=== PATIENT | male | born 1965 ===

== ENCOUNTER → 2023-10-27 14:10 | Outpatient (REF) | payer OTHER, SELFPAY | LOC: MRI 3T 14:10 | PROVIDERS: ATTENDING PHYSICIAN Internal Medicine | DX: R42 Dizziness and giddiness (principal) | CPT/HCPCS: 70553; A9575 ==

== ENCOUNTER 2024-06-30 05:44 | Emergency (ER) | payer OTHER, SELFPAY ==
[2024-06-30] VITALS (7 sets, daily range): BP systolic 108–184; BP diastolic 66–98; BMI 27.1
[2024-06-30] MEDS: ZOFRAN 4 MG IV (06:28)
[2024-06-30] MEDS: NSS 500 IV (06:28)
--- NOTE | 2024-06-30 06:50 | ED.GENMED ---
History of Present Illness
General
Chief Complaint: Dizziness
Source: patient and spouse
Time Seen by Provider: 06/30/24 06:02
History of Present Illness
History of Present Illness:
59-year-old male with history hyperlipidemia presents with severe room spinning dizziness. Patient states he has had this in the past and has followed up with ENT and the vestibular specialist. He had an outpatient MRI. He had done well for a few
months but then intermittently started having the symptoms again. Patient states that yesterday he could sense that he was getting a little dizzy and that it was good to be a tough night. Around 10 PM he got much worse. Started having severe room
spinning dizziness even at rest with vomiting. The symptoms are clearly much worse when he tries to sit up. Patient denies headache. Has had off-and-on tinnitus. No fevers. No neck pain. No vision changes. No motor weakness. No numbness or
tingling.
Past History
Past History
ED Past Medical History: Hypercholesterolemia and Other (Vertigo)
Phy Exam
Physical Exam
Physical Exam:
CONSTITUTIONAL Patient alert and oriented to person, place and time. Well-appearing. Vital signs reviewed.
HEAD atraumatic, normocephalic.
EYES eyelids normal to inspection, Extraocular muscles intact, Conjunctiva normal, Sclera normal.
NECK normal range of motion, Trachea midline, no jugular venous distention.
RESPIRATORY CHEST No respiratory distress noted, Chest expansion equal
BACK normal inspection, no obvious deformities
UPPER EXTREMITY range of motion normal, Motor strength normal, no cyanosis, no edema.
LOWER EXTREMITY range of motion normal, Motor strength normal, no cyanosis, no edema.
NEURO Speech normal, No focal motor deficits, [place] coma scale 15, Memory normal, Cranial Nerves intact to screening exam. Right horizontal nystagmus noted with questionable rotatory component.
SKIN skin warm, dry, and normal in color.
Course
Orders/Labs/Results
Orders:
Orders
06/30/24 06:23
Ondansetron Injectable [Zofran] 4 mg .ROUTE .STK-MED ONE
06/30/24 06:25
0.9% Sodium Chloride 500 ml [Nss] 500 ml IV BOLUS
06/30/24 06:27
Ondansetron Injectable [Zofran] 4 mg IV NOW STA
06/30/24 06:30
Meclizine [Antivert] 25 mg PO NOW STA
06/30/24 06:38
Basic Metabolic Panel Urgent
Complete Blood Count/With Diff Urgent
06/30/24 08:27
Diphenhydramine [Benadryl] 25 mg IV NOW STA
diazePAM [Valium Injection] 5 mg IV NOW STA
Abnormal Lab Results
06/30/24
06:38
Absolute Neuts (auto) 6.9 H 10^3/uL
(1.4-6.5)
Absolute Lymphs (auto) 1.1 L 10^3/uL
(1.2-3.4)
Neutrophils % 77.7 H %
(42.2-75.2)
Lymphocytes % 12.7 L %
(20.5-51.1)
Glucose 131 H mg/dl
(70-99)
06/30/24 06:38
06/30/24 06:38
Vital Signs
Initial and Last Documented VS:
Initial Vital Signs
Pulse Resp BP Pulse Ox
109 26 184/98 100
06/30/24 05:46 06/30/24 05:46 06/30/24 05:46 06/30/24 05:46
Last Documented Vital Signs
Temp Pulse Resp BP Pulse Ox
98.2 F 69 15 110/71 95
06/30/24 07:19 06/30/24 10:00 06/30/24 10:00 06/30/24 10:00 06/30/24 10:00
MDM/Problems Addressed
Differential Diagnosis Includes:
Vestibular neuritis, benign positional vertigo, M�ni�re's disease, Gisel syndrome, central vertigo, vestibular migraine
MDM/Problems Addressed:
Acute severe vertigo
*Pulse Oximetry
Patient hypoxic: no
*Critical Care Note
Total Time (30-74mins, 75-104mins- exclusive of procedures): Not Applicable
Data Reviewed
Source: patient and spouse
Further Testing Considered But Not Given:
Consider head CT but patient has had an outpatient MRI in the past and no focal neurofindings
Patient Management
Escalation/DeEscalation of care consider admission/obs:
On reassessment patient does feel better. He is up and out of bed and ambulatory. Normal gait. No cerebellar findings. Question M�ni�re's disease versus other etiology of peripheral vertigo. Okay for discharge and outpatient follow-up.
ED Attending Note
-
Portions of this chart may have been created with voice recognition software.� Occasional wrong word or��sound alike� substitutions may have occurred due to the inherent limitations of voice recognition software.
Discharge Plan
Departure
Patient Disposition: Home (Routine Discharge)
Date of Disposition: 06/30/24
Time of Disposition: 11:48
Patient with high blood pressure during this ER visit?: No
Discharge Problem:
Vertigo
Instructions: Vertigo (a type of dizziness)
Prescriptions:
New
meclizine 25 mg tablet
25 mg PO TID Qty: 15 0RF
No Action
rosuvastatin [Crestor] 20 mg Tablet
20 mg PO DAILY
Referrals:
Miriam Crump MD [Family Provider] -
Activity Restrictions/Additional Instructions:
Return immediately for intractable vomiting, intractable dizziness, fevers or any other concerns. Please see your vestibular specialist or doctor in the next 3 to 5 days for follow-up and reevaluation.
Interventions
Interventions:
*Risk Screen - Suicide Last Done: 06/30/24 05:46
*General Assessment Last Done: 06/30/24 05:46
*Neglect/Abuse Screening Last Done: 06/30/24 05:46
*ED- Fall Risk Assessment Last Done: 06/30/24 06:05
*ED COVID-19 Vaccine History Last Done: 06/30/24 06:05
ED- Neurological Assessment Last Done: 06/30/24 06:05
ED Swallowing Screen Last Done: 06/30/24 06:12
Discharge Date and Time
Print Language: MALAY
[2024-06-30 07:03] LABS: % Basophils 0.9 % (0-2); % Eosinophils 1.1 % (0-6); % Immature Granulocytes 0.5 % (0-0.5); % Lymphocytes 12.7 % (20.5-51.1); % Monocytes 7.1 % (1.7-9.3); % Neutrophils 77.7 % (42.2-75.2); Absolute Basophils 0.1 10^3/uL (0-0.2); Absolute Eosinophils 0.1 10^3/uL (0-0.7); Absolute Lymphocytes 1.1 10^3/uL (1.2-3.4); Absolute Monocytes 0.6 10^3/uL (0.1-0.6); Absolute Neutrophils 6.9 10^3/uL (1.4-6.5); Hematocrit 39.9 % (39.0-52.0); Hemoglobin 14.6 g/dL (13.0-18.0); Mean Corp Hgb Conc. 36.6 g/dL (33.0-37.0); Mean Corpuscular Hgb 30.9 pg (27.0-31.0); Mean Corpuscular Volume 84.4 fL (80.0-94.0); Mean Platelet Volume 9.3 fL (7.4-10.4); Nucleated Red Blood Cells % 0 % (-); Platelet Count 278 10^3/uL (130-400); Red Blood Cell Count 4.73 10^6/uL (4.70-6.10); Red Cell Dist. Width 12.2 % (11.5-14.5); White Blood Cell Count 8.8 10^3/uL (4.8-10.8)
[2024-06-30 07:10] LABS: Blood Urea Nitrogen 14 mg/dl (9-20); Calcium 9.4 mg/dl (8.4-10.2); Carbon Dioxide 23 mmol/L (22-30); Chloride 107 mmol/L (98-107); Estimated Creatinine Clearance 89 ml/min; Glucose 131 mg/dl (70-99); Sodium 142 mmol/L (135-145); eGFR > 60.00
[2024-06-30] MEDS: ANTIVERT 25 MG PO (07:16)
[2024-06-30] MEDS: VALIUM INJECTION 5 MG IV (08:33)
[2024-06-30] MEDS: BENADRYL 25 MG IV (08:34)
== END 2024-06-30 13:08 | disposition home or self-care (01) ==
LOC: EMR 05:44
PROVIDERS: EMERGENCY PHYSICIAN Emergency Medicine; FAMILY PHYSICIAN Psychiatry & Neurology Psychiatry
DX: R42 Dizziness and giddiness (principal); E78.00 Pure hypercholesterolemia, unspecified
CPT/HCPCS: 99283; 96374; 96375; 96361; 80048; 85025